=== PATIENT | female | born 1960 | race Caucasian/White ===

== ENCOUNTER 2017-07-27 16:36 | Emergency (ER) | payer OTHER ==
[2017-07-27 17:14] VITALS: BP 151/75
--- NOTE | 2017-07-27 17:40 | UC ---
Headache HPI - HPI Summary HPI Summary: 57 year old female with Malaise, cold sx, slight cough, sore throat and headache onset 3 days, vomiting, diarrhea, started that night. Headache is in temples and radiates down neck. Bending forward increases neck and head pain. Ears are more sensitive to sound. Right eye redness noticed yesterday. Her family has been ill lately and headache on and off for 2 days or so . Does have apettite and eating and drinking pretty well. Significant sinus pressure bending over and sinus drainage. [ End ] - History Of Current Complaint Chief Complaint: UCGeneralIllness Stated Complaint: HEADACHE,UPSET STOMACH Time Seen by Provider: 07/27/17 17:34 Hx Obtained From: Patient Hx Last Menstrual Period: 2015 Onset/Duration: Gradual Onset Onset Of Symptoms: Gradual Currently Pain Is: Current Pain Scale(0-10)= - 8 or 9, Moderate Timing: Constant Character: Pressure Location of Headache: Frontal, Temporal Aggravating Factor: Bright Lights Allevating Factors: Nothing Associated Signs And Symptoms: Positive: Negative, Sinus Pressure, Neck Stiffness - Risk Factors Meningitis Risk Factors: Negative - Allergies/Home Medications Allergies/Adverse Reactions: Allergies Allergy/AdvReac Type Severity Reaction Status Date / Time Sulfa Antibiotics Allergy Swelling Verified 07/27/17 17:14 Home Medications: Home Medications Acetaminophen [Tylenol 8 Hour] 1,300 mg PO DAILY PRN 07/27/17 [History Confirmed 07/27/17] Cholecalciferol [Vitamin D] 1,000 unit PO DAILY 07/27/17 [History Confirmed ] Dextromethorphan-Phenylephrine [Jessi-[place] Plus Day Col 10-5-325 mg] 1 dose PO DAILY PRN 07/27/17 [History Confirmed 07/27/17] Levothyroxine TAB* [Synthroid 25 MCG TAB*] 25 mcg PO DAILY 07/27/17 [History Confirmed 07/27/17] PMH/Surg Hx/FS Hx/Imm Hx Previously Healthy: Yes Endocrine History: Hypothyroidism - Surgical History Surgical History: Yes Surgery Procedure, Year, and Place: uterine polps removed - Family History Known Family History: Positive: Other - sister with brain aneurysm at age 49 requiring surgery Negative: Seizure Disorder - Social History Occupation: Employed Full-time - book keeper Alcohol Use: Occasionally Substance Use Type: None Smoking Status (MU): Never Smoked Tobacco Review of Systems Constitutional: Fever, Chills, Fatigue Eyes: Negative, Photophobia ENT: Ear Ache, Nasal Discharge, Sinus Congestion, Sinus Pain/Tenderness Musculoskeletal: Myalgia Neurological: Headache Is Patient Immunocompromised?: No All Other Systems Reviewed And Are Negative: Yes Physical Exam Triage Information Reviewed: Yes Appearance: Well-Appearing, No Pain Distress, Well-Nourished Vital Signs: Initial Vital Signs Temp 100.4 F 07/27/17 17:03 Pulse 87 07/27/17 17:03 Resp 22 07/27/17 17:03 BP 151/75 07/27/17 17:03 Pulse Ox 98 07/27/17 17:03 Vital Signs Reviewed: Yes Eye Exam: Normal Eyes: Positive: Conjunctiva Clear, Other: - no photophpobia or discharge but minimal injection left eye mild ENT Exam: Normal ENT: Positive: Nasal congestion, Nasal drainage, TM dull, Other: - bilateral maxillary tenderness to palpation. Negative: Tonsillar swelling, Tonsillar exudate Dental Exam: Normal Neck exam: Normal Neck: Positive: Supple, Nontender, No Lymphadenopathy, Other: - bilateral trap tenderness. neg kernig or brud. FROM of neck. no sp tenderness no step off Respiratory Exam: Normal Cardiovascular Exam: Normal Abdominal Exam: Normal Musculoskeletal Exam: Normal Musculoskeletal: Positive: Strength Intact, ROM Intact Neurological Exam: Normal Neurological: Positive: Alert, Muscle Tone Normal Psychological Exam: Normal Psychological: Positive: Normal Response To Family Skin Exam: Normal Headache Course/Dx - Course Course Of Treatment: Treat at this time for sinusitis based on exposure and fever with sinus pressure / headahce that is not improved. Discussed red flags for neuro concerns and patient does not have any. With sister history we discussed CT brain but patient declined and desires to have further work up with PCP with likely MRI for more definition and accuracy. We also discussed S/ S of meningitis but she does not have these and if develops any of these like worsened FU, fever, rash, concerns then go to ED but she declined at this time and aware of when to go . Advised to also use the netti pot as well . - Differential Dx/Diagnosis Differential Diagnosis/HQI/PQRI: Epidural Hematoma, Subdural Hematoma, Sinus Headache, Subarachnoid Hemorrhage, Tension Headache, Viral Syndrome Provider Diagnoses: Sinusitis Discharge - Discharge Plan Condition: Good Disposition: HOME Prescriptions: Amoxicillin/Clavulanate TAB* [Augmentin TAB 875*] 875 mg PO BID #20 tab Patient Education Materials: Sinusitis (ED) Referrals: Sandra Pruitt [Primary Care Provider] - 4 Days (also please discuss your sister's previous medical history of aneurysm) Additional Instructions: If you develop worsened pain, headache, confusion or any rash on the body then go to the Emergency room for further work up .
== END 2017-07-27 18:11 | disposition home or self-care (01) ==
LOC: UCCORT 16:36
DX: J32.9 Chronic sinusitis, unspecified (principal)
CPT/HCPCS: 99212; G0463

== ENCOUNTER 2020-09-25 07:21 | Observation (INO) ==
[~2020-09-25 07:21] MED LIST: Buffered Lidocaine 1% SYRIN 1 ml INTRADERM ONE; Lactated Ringers 1000 ml BAG 1,000 ML IV SCH; Sodium Citrate/Citric Acid LIQ 15 ML UDC PO ONE
[2020-09-25] MEDS ORDERED: Sodium Citrate/Citric Acid LIQ 15 ML UDC ONE (07:38)
[2020-09-25] MEDS ORDERED: ceFAZolin 2 GM PREMIX 2 GM/50 ML BAG ONE (07:38)
[2020-09-25] MEDS ORDERED: Buffered Lidocaine 1% SYRIN 1 ml INTRADERM ONE (07:39)
[2020-09-25] MEDS ORDERED: Lidocaine 1% MPF 5 ML VIAL ONE (07:56)
[2020-09-25] MEDS ORDERED: ROPIVACAINE 5 MG/ML 30 ML BTL (0.5%) ONE (07:56)
[2020-09-25] MEDS ORDERED: Dexamethasone IV 4 MG/ML VIAL 1 ml VIAL ONE (07:58)
[2020-09-25] MEDS ORDERED: Famotidine IV 10 MG/ML 2 ml VIAL (20 mg) IV SLOW PU ONE (08:42)
[2020-09-25] MEDS ORDERED: Midazolam 5 mg/5 ml VIAL 1 mg/ml 5 ml VIAL (5 mg) ONE (08:46)
[2020-09-25] MEDS ORDERED: Famotidine IV 10 MG/ML 2 ml VIAL (20 mg) ONE (08:46)
[2020-09-25] MEDS ORDERED: Midazolam 2 mg/2 ml VIAL 1 mg/ml 2 ml VIAL (2 mg) ONE (09:05)
[2020-09-25] MEDS ORDERED: Bupivacaine 0.5% SDV PF 30ML VIAL ONE (09:09)
[2020-09-25] MEDS ORDERED: Propofol 10 MG/ML 20 ML BTL ONE ×2 (09:38→11:19)
[2020-09-25] MEDS ORDERED: diPHENhydraMINE IV 50 MG/ML 1 ml VIAL (BENADRYL) IV PRN (10:23)
[2020-09-25] MEDS ORDERED: Lactulose 30 ml UDC PO PRN (10:23)
[2020-09-25] MEDS ORDERED: Morphine 2 MG/ML SYRINGE IV PRN (10:23)
[2020-09-25] MEDS ORDERED: diPHENhydraMINE 25 mg TAB PO PRN (10:23)
[2020-09-25] MEDS ORDERED: Ondansetron ODT 4 mg TAB 4 MG TAB PO PRN (10:23)
[2020-09-25] MEDS ORDERED: Ondansetron 4 mg VIAL 2 MG/ML 2 ml VIAL IV PRN ×2 (10:23→11:31)
[2020-09-25] MEDS ORDERED: Magnesium Hydroxide LIQ 30 ML UDC PO PRN (10:23)
[2020-09-25] MEDS ORDERED: Propofol 0 MG/0 ML BTL ONE (10:47)
[2020-09-25] MEDS ORDERED: Lidocaine 2% PF 5 ML VIAL ONE (10:50)
[2020-09-25] MEDS ORDERED: fentaNYL 100 mcg/2 ml 50 MCG/ML VIAL IV PRN (11:31)
[2020-09-25] MEDS ORDERED: HYDROmorphone 1 MG/1 ML SYRINGE IV PRN (11:31)
[2020-09-25] MEDS ORDERED: Naloxone 0.4 mg VIAL 0.4 mg/ml 1 ml VIAL IV PRN (11:31)
[2020-09-25] MEDS ORDERED: Prochlorperazine 5 mg/ml 2 ml VIAL (10 mg) IV PRN (13:50)
[2020-09-25] MEDS: Lactated Ringers 1000 ml BAG 1,000 ML IV SCH (14:57)
[2020-09-25] MEDS: oxyCODONE/Acetamin 5/325 mg TAB PO PRN (16:17)
[2020-09-25] MEDS: ceFAZolin 1 GM ADVAN 1 GM in NS 0.9% 50 ML 50 ML IVPB SCH (17:49)
[2020-09-25] MEDS: Magnesium Hydroxide LIQ 30 ML UDC PO SCH (23:12)
[2020-09-26] MEDS ORDERED: Polyethylene Glycol 3350 17 GM PACKET PO PRN (00:01)
[2020-09-26] MEDS: Lactated Ringers 1000 ml BAG 1,000 ML IV SCH (01:33)
[2020-09-26] MEDS: ceFAZolin 1 GM ADVAN 1 GM in NS 0.9% 50 ML 50 ML IVPB SCH ×2 (01:56→09:37)
[2020-09-26] MEDS: oxyCODONE/Acetamin 5/325 mg TAB PO PRN ×3 (04:52→12:59)
[2020-09-26 06:23] LABS: Hematocrit 37 % (35-47); Hemoglobin 12.2 g/dL (12.0-16.0); Mean Platelet Volume 8.2 fL (7.4-10.4); Platelet Count 231 10^3/uL (150-450)
[2020-09-26 06:36] LABS: BUN/Creatinine Ratio 17.5 (8-20); Calcium 8.7 mg/dL (8.6-10.3); EGFR African American 116.6 (>60); EGFR Non-African American 96.4 (>60); Potassium 4.1 mmol/L (3.5-5.0)
[2020-09-26] MEDS ORDERED: Influenza VAC *QUAD* 2020-21* 0.5 ML SYRINGE IM ONE (09:00)
[2020-09-26] MEDS ORDERED: Vitamin THERAPEUTIC TAB PO SCH (09:00)
[2020-09-26] MEDS: Magnesium Hydroxide LIQ 30 ML UDC PO SCH (09:03)
[2020-09-26 15:08] VITALS: BP 110/60
== END 2020-09-26 15:53 | disposition home or self-care (01) ==
LOC: SSU 07:21 → OR 07:21
PROVIDERS: ADMIT Orthopaedic Surgery Adult Reconstructive Orthopaedic Surgery; ATTEND Orthopaedic Surgery Adult Reconstructive Orthopaedic Surgery